=== PATIENT | female | born 1965 | race Caucasian/White ===

== ENCOUNTER 2017-06-21 21:26 | Emergency (ER) | payer BC ==
[~2017-06-21] VITALS: Ht 165.1 cm; Wt 109.1 kg
[~2017-06-21 21:26] MED LIST: COMBIVENT RESPIM4 GM IH; DOXYCYCLINE HY100 M3 PO; LORATADINE10 M2 PO; PREDNISONE20 MG PO; TAPAZOLE5 MG PO; XOPENEX HF200 INHALA IH
[2017-06-21 21:58] LABS: ADD MIUA? YES; BILIRUBIN NEGATIVE; BLOOD NEGATIVE; COLOR YELLOW ((YELLOW)); GLUCOSE (STRIP) NEGATIVE; KETONES NEGATIVE; LEUKOCYTES TRACE; NITRITE NEGATIVE; PROTEIN (STRIP) NEGATIVE; SPECIFIC GRAVITY 1.017 (1.000-1.030); UROBILINOGEN 0.2 MG/DL (0.2-1.0)
[2017-06-21 22:02] LABS: BACTERIA NONE SEEN /HPF; EPITHELIAL CELLS RARE /HPF; MUCUS TRACE /LPF; RED BLOOD CELLS 0-5 /HPF (0-5); UCUL ADDED? NO; WHITE BLOOD CELLS 0-5 /HPF (0-5)
[2017-06-21 22:43] LABS: HEMATOCRIT 39.8 % (36.0-46.0); MCH 26.7 PG (29.0-34.0); MCHC 32.4 G/DL (30.0-36.0); MCV 82.2 FL (83-99); MEAN PLAT.VOLUME 9.3 uM^3 (9.5-12.4); PLATELET COUNT 262 K/uL (156-360); RBC DIS.WIDTH-CV 13.3 % (11.8-14.6); RBC DIS.WIDTH-SD 39.8 % (39-53); RED BLOOD COUNT 4.84 M/uL (3.80-5.20); WHITE BLOOD COUNT 10.3 K/uL (4.1-10.2)
[2017-06-21 22:52] LABS: CHLORIDE 106 mEq/L (99-109); POTASSIUM 3.8 mEq/L (3.7-5.4); SODIUM 141 mEq/L (136-147)
[2017-06-21 22:55] LABS: GLUCOSE 126 mg/dL (70-99)
[2017-06-21 22:56] LABS: ANION GAP 11 MEQ/L (2-14); TOTAL BILIRUBIN 0.3 mg/dL (0.0-1.0)
[2017-06-21 22:58] LABS: ALKALINE PHOSPHATASE 143 IU/L (3-129); GFR ESTIMATE (CALCULATED) > 59 mL/min/
[2017-06-21 22:59] LABS: UREA NITROGEN (BUN) 12 mg/dL (9-23)
[2017-06-21 23:00] LABS: DIRECT BILIRUBIN 0.1 mg/dL (0.0-0.3)
[2017-06-21 23:02] LABS: LIPASE 27 U/L (1.0-51.0)
[2017-06-21] MEDS ORDERED: ZOFRAN ODT4 MG PO (23:42)
[2017-06-22 00:07] VITALS: BP 123/87
== END 2017-06-22 00:09 | disposition home or self-care (01) ==
LOC: EME 21:26
DX: R10.30 Lower abdominal pain, unspecified (principal); R11.0 Nausea; K76.0 Fatty (change of) liver, not elsewhere classified; Z90.49 Acquired absence of other specified parts of digestive tract; J45.909 Unspecified asthma, uncomplicated
CPT/HCPCS: 74176; 80048; 80076; 81003; 83690; 85027; 87086; 99281; 99284; J3010

== ENCOUNTER 2018-02-22 04:41 | Emergency (ER) | payer OTHER ==
[~2018-02-22] VITALS: Ht 165.1 cm; Wt 108.7 kg
[~2018-02-22 04:41] MED LIST changes: +ZOFRAN ODT4 MG PO
[2018-02-22 05:35] LABS: HEMATOCRIT 39.8 % (36.0-46.0); MCH 27.1 PG (29.0-34.0); MCHC 32.7 G/DL (30.0-36.0); MCV 83.1 FL (83-99); PLATELET COUNT 238 K/uL (156-360); RBC DIS.WIDTH-CV 13.1 % (11.8-14.6); RBC DIS.WIDTH-SD 39.8 % (39-53); RED BLOOD COUNT 4.79 M/uL (3.80-5.20)
[2018-02-22 05:46] LABS: CHLORIDE 107 mEq/L (99-109); POTASSIUM 3.7 mEq/L (3.7-5.4); SODIUM 140 mEq/L (136-147)
[2018-02-22 05:48] LABS: GLUCOSE 93 mg/dL (70-99)
[2018-02-22 05:52] LABS: CREATININE 0.9 mg/dL (0.6-1.3); GFR ESTIMATE (CALCULATED) > 59 mL/min/
[2018-02-22 05:53] LABS: UREA NITROGEN (BUN) 12 mg/dL (9-23)
[2018-02-22] MEDS ORDERED: PREDNISONE20 MG PO (06:58)
[2018-02-22] MEDS ORDERED: ZITHROMAX Z-PA250 MG PO (06:59)
[2018-02-22 07:12] VITALS: BP 128/80
== END 2018-02-22 08:14 | disposition home or self-care (01) ==
LOC: EME 04:41
DX: J20.9 Acute bronchitis, unspecified (principal); J45.909 Unspecified asthma, uncomplicated; Z90.49 Acquired absence of other specified parts of digestive tract; Z91.040 Latex allergy status; Z88.6 Allergy status to analgesic agent; Z88.2 Allergy status to sulfonamides; Z88.1 Allergy status to other antibiotic agents; Z88.8 Allergy status to other drugs, medicaments and biological substances
CPT/HCPCS: 71046; 80048; 85027; 93005; 99281; 99284; J7512